=== PATIENT | male | born 1990 | race African-American/Black ===

== ENCOUNTER 2021-09-30 23:17 | Emergency (ER) | payer OTHER ==
[~2021-09-30] VITALS: Ht 170.2 cm; Wt 68.0 kg
[2021-10-01 00:21] LABS: URINE BILIRUBIN NEGATIVE (Negative); URINE BLOOD 1+ (Negative); URINE CLARITY CLEAR; URINE COLOR YELLOW; URINE GLUCOSE-RANDOM* NEGATIVE (Negative); URINE KETONES NEGATIVE (Negative); URINE LEUKOCYTES-REFLEX NEGATIVE (Negative); URINE NITRITE-REFLEX NEGATIVE (Negative); URINE PROTEIN (DIPSTICK) NEGATIVE (Negative); URINE UROBILINOGEN 0.2 E.U./dl (0.2-1.0)
[2021-10-01 00:36] LABS: BACTERIA-REFLEX 1-9 Few /HPF (None Seen); CASTS None Seen /LPF (None Seen); MUCUS 0-3 Light strn/LPF (None Seen); SQUAMOUS 0-3 Few /LPF (0-3); URINE RBC 3-10 Few /HPF (NONE SEEN); URINE WBC-REFLEX 0-5 Rare /HPF (0-5)
[2021-10-01 00:37] LABS: CRYSTALS None Seen /LPF (None Seen)
[2021-10-01 01:49] VITALS: BP 137/68
[2021-10-01] MEDS ORDERED: AZITHROMYCIN 2250 MG PO ×2 (18:22→18:23)
== END 2021-10-01 04:53 | disposition home or self-care (01) ==
LOC: ER 23:17
PROVIDERS: Emergency Medicine
DX: R36.9 Urethral discharge, unspecified (principal); R31.29 Other microscopic hematuria; F12.90 Cannabis use, unspecified, uncomplicated